=== PATIENT | female | born 2000 | race Caucasian/White ===

== ENCOUNTER 2021-03-27 09:31 | Emergency (ER) | payer OTHER ==
[~2021-03-27] VITALS: Ht 170.2 cm; Wt 65.8 kg
[2021-03-27] MEDS ORDERED: PENICILLIN G BENZATHINE LA 1.2 MU TBX IM NR (10:16)
== END 2021-03-27 10:40 | disposition home or self-care (01) ==
LOC: ER 09:40
DX: J02.9 Acute pharyngitis, unspecified (principal); F32.A Depression, unspecified
CPT/HCPCS: 83518; 87070; 99283; J0561